=== PATIENT | female | born 1995 | race Caucasian/White ===

== ENCOUNTER 2017-09-14 19:13 | Emergency (ER) | payer OTHER ==
[~2017-09-14] VITALS: Ht 175.3 cm; Wt 68.0 kg
[~2017-09-14 19:13] MED LIST: BENTYL10 MG PO; DEPO-ESTRADIO5 MG/ML IM; HYDROCODON-ACE1 EA10 PO; PROZAC40 MG PO; ZOFRAN ODT4 MG PO
[2017-10-20] MEDS ORDERED: LEXAPRO10 MG PO (16:16)
== END 2017-09-14 22:57 | disposition home or self-care (01) ==
LOC: ED 19:13
DX: R10.2 Pelvic and perineal pain (principal); Z90.49 Acquired absence of other specified parts of digestive tract; Z88.5 Allergy status to narcotic agent; Z79.899 Other long term (current) drug therapy
CPT/HCPCS: 74177; 80053; 81001; 83690; 84703; 85025; 87491; 87591; 99284; Q9967

== ENCOUNTER 2017-10-22 05:30 | Day surgery (SDC) | payer OTHER ==
[~2017-10-22] VITALS: Ht 172.7 cm; Wt 74.8 kg
[~2017-10-22 05:30] MED LIST changes: +LEXAPRO10 MG PO
[2017-10-22] MEDS ORDERED: ADVIL200 MG PO (05:48)
--- NOTE | 2017-10-22 08:51 | NUR ---
10/22/17 0851 Kymberly Villalta 0829 RESP EVEN AND UNLABORED. ORAL AIRWAY IN PLACE, PT NON AROUSABLE AT HIS TIME. 0841 O2 DECREASED TO 6L, O2 SAT 100%. 0850 PT REACTIVE TO STIMULI, TOO DROWSY TO REMOVE ORAL AIRWAY.
--- NOTE | 2017-10-22 09:41 | NUR ---
PT UP TO BR W/RN AND BOYFRIEND STANDBY. PT AMBULATES WELL AND DENIES DIZZINESS. ICED WATER GIVEN AND PT TAKES SIPS OF THAT AND TOLERATES THAT WELL. PT VOIDS 600 ML LIGHT YELLOW URINE. PT BACK IN BED. SCDS IN PLACE. FAMILY @ BS.
[2017-10-22] MEDS ORDERED: PERCOCET 5-3251 EACH PO (10:24)
--- NOTE | 2017-10-22 11:03 | NUR ---
APPLESAUCE GIVEN AND PT EATS AND TOLERATES THAT WELL. PT REQ DC HOME. VERBAL DC INSTRUCTIONS GIVEN TO PT AND BOYFRIEND AND THEY BOTH VERBALIZE UNDERSTANDING. PT DRESSES SELF AND TRANSFERS SELF TO WC WELL.
--- NOTE | 2017-10-22 16:33 | OR ---
[facility] [address] [place], [place] [address] Signed DATE OF OPERATION: 10/22/2017 SURGEON: Srinivas Mandujano DO PREOPERATIVE DIAGNOSES: 1. Chronic pelvic pain. 2. Interstitial cystitis. 3. Irritable bowel syndrome. POSTOPERATIVE DIAGNOSES: 1. Chronic pelvic pain. 2. Interstitial cystitis. 3. Irritable bowel syndrome. PROCEDURES PERFORMED: 1. Diagnostic laparoscopy. 2. Cystourethroscopy. ENVIRONMENTAL ISSUES INSTRUCTOR: Mihir Nina MD ANESTHESIA: General. ESTIMATED BLOOD LOSS: 10 mL. FINDINGS: Normal external genitalia with normal clitoris, urethral meatus and bilateral [place]'s and Bartholin's glands. On laparoscopy, there is a normal pelvis with no signs of endometriosis in the cul-de-sac, bilateral tubes and ovaries, ovarian fossa or over the pelvic peritoneum. The tubes and ovaries appeared normal bilaterally. There are postoperative findings consistent with her history of cholecystectomy and appendectomy and there were no noted intra-abdominal adhesions. On cystourethroscopy, there was normal urethra and bladder. Bladder volume is 800 mL. There were no trabeculations, glomerulations, Hunner's ulcerations or bleeding with petechial hemorrhage noted. COMPLICATIONS: None. Electronically Signed By: SRINIVAS MANDUJANO DO 10/22/17 1633 PATIENT NAME: GUALBERTO CABRERA OPERATIVE REPORT DATE OF : [birth year] PHYSICIAN: SRINIVAS MANDUJANO DO REPORT #: [id number] REPORT IS CONFIDENTIAL AND NOT TO BE RELEASED WITHOUT AUTHORIZATION [facility] [address] [place], [place] [address] Signed INDICATIONS: Ms. Cabrera is a pleasant 22-year-old G1, P0 with a history of chronic pelvic pain who presents complaining of a long history of pelvic pain ever since starting menses. She also complains of voiding dysfunction with frequent bladder pain, nocturia, greater than 10 voids per day and relief of pain with voiding. She also has irritable bowel syndrome. We discussed options for evaluation and treatment including diagnostic laparoscopy and cystoscopy. Risks, benefits and alternatives were discussed in detail with the patient. The patient and family understand and wish to proceed with the procedure. TECHNIQUE: The patient was taken to the operating room. A time-out was performed to confirm correct patient and correct procedure. General anesthesia was adequately established. The patient was prepped and draped in the dorsal lithotomy position. Her feet in Yellofin stirrups. ICPs were on and running and no preop antibiotics or heparin were indicated. A weighted speculum was placed in the vagina and the anterior lip of the cervix was grasped with an Allis clamp. The cervix was dilated using Hegar dilators and then a Hulka uterine manipulator was then placed. A Ruano catheter was inserted. The surgeon's gloves were changed. Attention was turned to the abdomen. The base of the umbilicus was infiltrated with 0.25% Marcaine with epinephrine and a 5 mm incision was made at the base of the umbilicus. A 5 mm trocar was then placed under direct visualization into the abdomen without complication. Low opening pressures were noted with establishment of pneumoperitoneum and survey of the abdomen and pelvis was performed. Normal postoperative findings consistent with cholecystectomy and appendectomy were noted with no intraabdominal adhesions. A 5 mm trocar was placed in the left lower quadrant under direct visualization without complication. The pelvis was then carefully examined with the above findings again with no evidence of endometriosis or other pathology. The pelvic peritoneum was smooth without lesion. Pneumoperitoneum was then reduced. The trocars were removed and trocar sites were repaired using 4-0 Vicryl subcuticular stitch with good hemostasis and cosmesis. Attention was then turned to the cystourethroscopy. The Ruano catheter was removed and a 70-degree cystoscope was then placed in the urethral meatus and advanced under direct visualization into the bladder. The bladder was filled to capacity and the bladder was drained. An 800 mL of fluid were returned. The bladder was then filled again with approximately 300 mL of fluid and no Hunner's ulcerations, glomerulations, trabeculations or petechial hemorrhages were noted. The bladder trigone and ureteral orifices are normal. The bladder was then drained. The patient was taken to PACU in good stable condition. Sponge, needle and instrument counts were correct x2 at the end of the procedure. Dr. Nina was present and participated in all portions of the procedure. Electronically Signed By: SRINIVAS MANDUJANO DO 10/22/17 1633 PATIENT NAME: GUALBERTO CABRERA OPERATIVE REPORT DATE OF : [birth year] PHYSICIAN: SRINIVAS MANDUJANO DO REPORT #: [id number] REPORT IS CONFIDENTIAL AND NOT TO BE RELEASED WITHOUT AUTHORIZATION [facility] [address] [facility] [place], [place] [address] Signed Srinivas Mandujano DO JDW/MODL /[id number] Electronically Signed By: SRINIVAS MANDUJANO DO 10/22/17 1633 PATIENT NAME: GUALBERTO CABRERA OPERATIVE REPORT DATE OF : [birth year] PHYSICIAN: SRINIVAS MANDUJANO DO REPORT #: [id number] REPORT IS CONFIDENTIAL AND NOT TO BE RELEASED WITHOUT AUTHORIZATION
== END 2017-10-22 11:10 | disposition home or self-care (01) ==
LOC: DS 05:30
PROVIDERS: Obstetrics & Gynecology
PROC: 0WJJ4ZZ Inspection of Pelvic Cavity, Percutaneous Endoscopic Approach (ICD-10-PCS; principal; 2017-10-22 06:45)
PROC: 0TJB8ZZ Inspection of Bladder, Via Natural or Artificial Opening Endoscopic (ICD-10-PCS; 2017-10-22 06:45)
DX: N30.10 Interstitial cystitis (chronic) without hematuria (principal); K58.9 Irritable bowel syndrome, unspecified; G89.29 Other chronic pain; R10.2 Pelvic and perineal pain; Z79.899 Other long term (current) drug therapy; Z90.89 Acquired absence of other organs; Z90.49 Acquired absence of other specified parts of digestive tract; Z88.5 Allergy status to narcotic agent; Z88.8 Allergy status to other drugs, medicaments and biological substances
CPT/HCPCS: 00910; J0131; J1100; J1200; J2370; J2704; J2765; J7120